=== PATIENT | male | born 1970 | race Caucasian/White ===

== ENCOUNTER 2016-10-28 13:46 | Outpatient (CLI) | payer OTHER | END 2016-10-28 13:47 | disposition home or self-care (01) | LOC: SC 13:46 | PROVIDERS: ATTEND Specialist | DX: G47.33 Obstructive sleep apnea (adult) (pediatric) (principal) | CPT/HCPCS: 99203; 99212 ==

== ENCOUNTER 2018-12-13 12:07 | Outpatient (CLI) | payer MEDICARE, OTHER | END 2018-12-13 12:08 | disposition short-term general hospital (02) | LOC: EMS 12:07 | PROVIDERS: ATTEND Surgery | DX: S09.93XA Unspecified injury of face, initial encounter (principal); W20.8XXA Other cause of strike by thrown, projected or falling object, initial encounter; Y93.H9 Activity, other involving exterior property and land maintenance, building and construction; Y92.71 Barn as the place of occurrence of the external cause | CPT/HCPCS: A0425; A0427 ==